=== PATIENT | female | born 2005 | race Caucasian/White ===

== ENCOUNTER 2024-05-09 12:28 | Emergency (ER) | payer SELFPAY ==
[~2024-05-09] VITALS: Ht 154.9 cm; Wt 49.9 kg
[2024-05-09 12:28] VITALS: BP_SYST 139; PULSE 88; RESP 19; TEMP 98.5; O2SAT 100
[2024-05-09 13:16] VITALS: BP_SYST 139; PULSE 88; RESP 19; TEMP 98.5; O2SAT 100
== END 2024-05-09 13:13 | disposition home or self-care (01) ==
LOC: SED 12:28
DX: Z02.89 Encounter for other administrative examinations (principal); I50.9 Heart failure, unspecified
CPT/HCPCS: 99283